=== PATIENT | male | born 1960 | race Caucasian/White ===

== ENCOUNTER 2021-12-02 14:44 | Inpatient (IN) | payer OTHER ==
[~2021-12-02] VITALS: Ht 182.9 cm; Wt 86.2 kg
[2021-12-02 15:36] LABS: HEMOGLOBIN 16.3 gm/dl (14.0-17.5); RED BLOOD COUNT 5.15 M/UL (4.20-5.50)
[2021-12-02 16:00] LABS: WHITE BLOOD COUNT 36.8 K/UL (4.5-11.0)
[2021-12-02 16:03] LABS: BUN/CREATININE RATIO 15 (0-10)
[2021-12-03] MEDS ORDERED: ESOMEPRAZOLE MA40 MG PO (02:57)
[2021-12-03] MEDS ORDERED: HYDROCODON-ACE1 EAC6 PO (02:57)
[2021-12-03] MEDS ORDERED: ALPRAZOLAM2 MG PO (02:58)
[2021-12-03] MEDS ORDERED: CELECOXIB200 MG PO (02:58)
[2021-12-03] MEDS ORDERED: MONTELUKAST SOD10 MG PO (02:59)
[2021-12-03] MEDS ORDERED: CRESTOR20 MG PO (03:11)
[2021-12-03 05:50] LABS: HEMOGLOBIN 13.7 gm/dl (14.0-17.5); RED BLOOD COUNT 4.42 M/UL (4.20-5.50); WHITE BLOOD COUNT 31.4 K/UL (4.5-11.0)
[2021-12-03 05:56] LABS: BUN/CREATININE RATIO 27 (0-10)
[2021-12-05 04:49] LABS: HEMOGLOBIN 12.7 gm/dl (14.0-17.5); RED BLOOD COUNT 4.09 M/UL (4.20-5.50)
[2021-12-05 04:55] LABS: WHITE BLOOD COUNT 14.1 K/UL (4.5-11.0)
[2021-12-05 05:23] LABS: BUN/CREATININE RATIO 26 (0-10)
[2021-12-05] MEDS ORDERED: METRONIDAZOLE500 MG PO (16:02)
[2021-12-05] MEDS ORDERED: LEVOFLOXACIN750 MG PO (16:02)
== END 2021-12-05 17:00 | disposition home or self-care (01) | DRG 871 ==
LOC: ER1 14:44 → CDU 22:35 → 3 EAST 12-03 12:50 → M/S 12-03 14:59
PROVIDERS: Emergency Medicine; Internal Medicine Infectious Disease; ADMIT Internal Medicine
DX: A41.9 Sepsis, unspecified organism (principal); J18.9 Pneumonia, unspecified organism; J69.0 Pneumonitis due to inhalation of food and vomit; Z20.822 Contact with and (suspected) exposure to COVID-19; J44.1 Chronic obstructive pulmonary disease with (acute) exacerbation; J44.0 Chronic obstructive pulmonary disease with (acute) lower respiratory infection; F11.20 Opioid dependence, uncomplicated; G89.29 Other chronic pain; F17.210 Nicotine dependence, cigarettes, uncomplicated; M19.90 Unspecified osteoarthritis, unspecified site; M54.9 Dorsalgia, unspecified; F41.9 Anxiety disorder, unspecified; Z87.01 Personal history of pneumonia (recurrent); Z82.69 Family history of other diseases of the musculoskeletal system and connective tissue; Z82.0 Family history of epilepsy and other diseases of the nervous system; Z88.0 Allergy status to penicillin; Z86.16 Personal history of COVID-19
CPT/HCPCS: 0240U; 36415; 71045; 80048; 80053; 81001; 82550; 82553; 83605; 83735; 83874; 84100; 84484; 85025; 86140; 87040; 87070; 87086; 87205; 94640; 94664; 94760; 96372; 96374; 96375; 99285; J0696; J1650; J1885; J2185; J2920; Q9967